=== PATIENT | female | born 1970 | race Caucasian/White ===

== ENCOUNTER → 2018-12-06 10:07 | Outpatient (CLI) | payer BC, SELFPAY ==
--- NOTE | 2018-12-06 10:09 | MM_ITS ---
MM Dig screening mamm BI w/CAD CAD Screening COMPARISON: Digital mammograms with CAD 02/18/2015 and 01/29/2014 INDICATION: There is a history of breast cancer in patient's maternal grandmother. There has been a previous cyst aspiration right breast. TECHNIQUE: Standard CC and MLO images were obtained. R2 CAD reviewed. FINDINGS: There is a markedly dense and diffusely heterogenic parenchymal pattern definitely lessening the sensitivity of mammography. There are a few scattered benign-appearing microcalcifications in each breast. There are couple mole markers near the axillary tail left breast there is no suspicious lesion and no suspicious microcalcifications. There are couple benign-appearing microcalcifications in each breast. IMPRESSION: Markedly dense parenchymal pattern no suspicious lesion seen BI-RADS Category: 2 Benign Finding(s) RECOMMENDED FOLLOW-UP: 1YR - 1 YEAR FOLLOW-UP (A letter has been sent to the patient regarding results of the study.)
== END ==
PROVIDERS: PCP Family Medicine; Visit Provider Obstetrics & Gynecology
DX: Z12.31 Encounter for screening mammogram for malignant neoplasm of breast (principal)
CPT/HCPCS: 77067